=== PATIENT | female | born 1960 | race Caucasian/White ===

== ENCOUNTER 2019-05-28 10:09 | Observation (INO) | payer BC, SELFPAY ==
[2019-05-28 10:11] VITALS: BP 160/87; PULSE 77; RESP 16; TEMP 36.7; O2SAT 98; BMI 41.5
--- NOTE | 2019-05-28 10:30 | RAD_ITS ---
STUDY: X-RAY - RIGHT ANKLE REASON FOR EXAM: Female, 59 years old. Pain and swelling TECHNIQUE: 3 view(s) of the ankle. COMPARISON: None. FINDINGS: There are subacute trimalleolar fractures noted in the right ankle. There is an acute transverse fracture of the medial malleolus. There is a minimally displaced, spiral fracture of the distal fibula, and a nondisplaced posterior tibial fracture. There is associated soft tissue swelling. There is abnormal widening of the tibiotalar joint space suggesting ligamentous injury. The distal fracture fragment of the tibia maintains anatomic alignment with the talus. The distal fracture fragment of the fibula also maintains anatomic alignment with the talus. Prominent calcaneal heel spurs noted. RAD/Ankle min 3 Views IMPRESSION: Subacute trimalleolar fractures in the right ankle with diffuse soft tissue swelling. Orthopedic surgery consultation recommended Prominent calcaneal spurs Electronically Signed: Cedric Martínez MD at 11:54 EDT , Service support ,
--- NOTE | 2019-05-28 10:41 | EKG12_ITS ---
Test Reason : Blood Pressure : / mmHG Vent. Rate : 065 BPM Atrial Rate : 065 BPM P-R Int : 158 ms QRS Dur : 084 ms QT Int : 396 ms P-R-T Axes : 003 020 039 degrees QTc Int : 411 ms Normal sinus rhythm Normal ECG Confirmed by MATEUS VILLAGOMEZ, GALEN ([id number]), editor map RIELLY GU ([id number]) on 06/01/2019 2:03:55 PM Referred By: Abraham Roberts Confirmed By:ASHA IGNACIO MD
--- NOTE | 2019-05-28 10:50 | ED.DCSUM_ITS ---
History of Present Illness Chief Complaint: Lower Extremity Injury Informant: Patient Occurred: Days - 3 Context: Sudden Onset - gradually worsening Quality of Pain: Aching Location: right ankle/leg Current Severity: Severe Maximum Severity: Severe Worsened by: trying to get around, palpation Relieved by: not by percocet Associated Symptoms: Loss of Funtion. Negative for: Parasthesia, Weakness Narrative: Patient was at [employer] couple days ago, she slipped on a wet rock and broke her ankle, she was seen at the local ER where they diagnosed and put her in a splint. They recommended that she be nonweightbearing and that she allow them to transfer her to [facility]. She declined at the time and preferred to go home which is here, to follow-up with orthopedics where she lives. They told her to be nonweightbearing but did not send her home with crutches or a prescription for any hardware, she states her has been trying to carry her but he cannot because he has bad knees, she has had significant difficulty in getting around, transferring to the restroom, etc. She has an appointment for Saturday which is 4 days away, and she has not seen orthopedics yet. She is in extreme pain despite the Percocet she was prescribed. She denies any numbness in her toes. She has done her best not to weight-bear with her right lower extremity. She denies any systemic symptoms or fevers. Past Medical History - Allergies and Home Meds Allergies/Adverse Reactions: Allergies No Known Allergies Allergy (Verified 05/28/19 10:10) Past Medical History: None Lives: Spouse/ Significant Other Smoking Status: Never smoker - Family History Paternal Family History: Reports: Heart Disease Review of Systems General: Denies: Chills, Fever, Sweats Eyes: Denies: Visual changes - bilaterally, Diplopia ENT: Denies: Rhinorrhea, Sore throat Cardiovascular: Denies: Chest pain, Palpitations Respiratory: Denies: Dyspnea, Cough, Dyspnea on exertion Gastrointestinal: Denies: Abdominal pain, Nausea, Vomiting, Diarrhea, Melena, Hematochezia Genitourinary: Denies: Dysuria, Hematuria, Frequency Musculoskeletal: Reports: Swelling - Right ankle, Extremity Pain. Denies: Neck pain, Back pain Skin: Denies: Rash, Wounds Neurological: Denies: Headache, Weakness, Parasthesia, Numbness Physical Exam Vital Signs/Narrative: Vital Signs Temp Pulse Resp BP Pulse Ox 05/28/19 10:11 98.1 F 77 16 160/87 H 98 Inital Vital Signs reviewed: Yes - Extremity Exam Right Ankle: Limited ROM - Due to pain. Diffusely tender throughout right ankle and lower half of her right lower leg. All compartments are soft. Brisk cap refill distally. General: Well nourished, Well developed, Obese Head: Normocephalic, Atraumatic Eyes: Perrl, EOMI ENT: No Trauma, Moist Mucous Membranes Neck: Nontender, Full ROM Cardiovascular: Regular rate, Regular rhythm, No murmurs Respiratory: No distress, CTA bilaterally, Chest nontender Abdomen: Soft, Nontender, Nondistended, Normal bowel sounds Back: Nontender Skin: Normal color, No rash, Trauma - Scabbed abrasion anterior right ankle, no lacerations. Old-appearing bruising/ecchymosis distal to the ankle and the foot. Neurological: Alert, Oriented x3, Cranial nerves II-XII grossly intact, Normal Strength, Normal Sensation Psychological: Normal affect, Normal Mood Diagnostic/Tx/Re-eval Impressions Ankle X-Ray 05/28/19 10:30 IMPRESSION: Subacute trimalleolar fractures in the right ankle with diffuse soft tissue swelling. Orthopedic surgery consultation recommended Prominent calcaneal spurs Electronically Signed: Cedric Martínez MD at 11:54 EDT , Service support , 05/28/19 10:30 Ankle min 3 Views [RAD] Stat Laboratory Results 05/28/19 05/28/19 11:18 11:18 WBC 11.9 H RBC 4.49 Hgb 13.0 Hct 39.8 MCV 88.6 MCH 29.0 MCHC 32.7 RDW Std Deviation 44.4 H RDW Coeff of Mana 13.8 Plt Count 229 MPV 10.4 Immature Gran % (Auto) 0.600 Neut % (Auto) 68.5 Lymph % (Auto) 23.0 [place] % (Auto) 6.6 Eos % (Auto) 0.9 Baso % (Auto) 0.4 Absolute Neuts (auto) 8.1 H Absolute Lymphs (auto) 2.73 Absolute Nucleated RBC 0.00 Nucleated RBC % 0 Sodium 138 Potassium 4.8 Chloride 107 Carbon Dioxide 28.0 Anion Gap 3 L BUN 15 Creatinine 0.92 Estim Creat Clear Calc 58.51 Est GFR (MDRD) Af Amer 80 Est GFR (MDRD) Non-Af 66 BUN/Creatinine Ratio 16.3 Glucose 164 H Calcium 9.5 - EKG Initial EKG Interpretation: Sinus Rhythm, No Acute Injury Pattern - normal EKG Prior: No Prior - (preop EKG) - Medical Decision Making I reviewed the x-rays patient had at the outpatient facility, and also obtain new one since she has been trying to get around, sometimes unsuccessfully, without bearing weight on it. The outpatient films show a displaced bimalleolar fracture and it appears to be splinted that way. X-rays confirm that is still the case, there is quite a bit of lateral talar shift. I discussed with orthopedics Dr. Rivers, he agrees she needs surgical repair, but states she may be too swollen to do it immediately, and recommends outpatient evaluation for surgical fixation for the fracture. However, with regards to the patient herself, she is not able to get around, and feels that she will not be able to even with a walker and her is unable to help her and they are requesting admission for pain control. They do understand that surgery is not guaranteed while here in the hospital, but Dr. Rivers said that he would see the patient and evaluate her for that and evaluate the degree of swelling. With regards to her swelling, I do not think she clinically has a compartment syndrome at this time. Morphine did help her pain. Procedures - Lower Extremity Splints Lower Extremity Splint: Orthoglass - short leg posterior & sugartong splint, - - NVID after placement, tolerated well Splint Fabrication: Fabricated Location: Right ED Disposition - Plan for ED Patient: Disposition: Acute Care Hospital [facility] Diagnosis: Closed displaced bimalleolar fracture of right ankle, Intractable pain
[2019-05-28] MEDS: Morphine 4 MG/ML Syringe IV (11:17)
[2019-05-28 11:31] LABS: Absolute Lymphocyte Count 2.73 X10^3/uL (0.83-4.51); Absolute Neutrophil Count 8.1 X10^3/uL (2.0-7.7); Basophil# 0.05 X10^3/uL; Basophil% 0.4 % (0-1); Eosinophil# 0.11 X10^3/uL; Eosinophils% 0.9 % (0-5); Hematocrit 39.8 % (37-47); Lymphocyte # 2.73 X10^3/ul (4.0); Mean Corp Hgb Conc 32.7 g/dL (32-36); Mean Corpuscular Volume 88.6 fL (81-99); Mean Platelet Vol. 10.4 fl (6.2-12.0); Monocyte# 0.78 X10^3/uL; Monocyte% 6.6 % (0-10); NRBC Flagged by Analyzer 0 % (0-5); Neutrophil # 8.14 X10^3/uL (2.7-7.7); Neutrophil % 68.5 % (47-70); Platelet Count 229 K/mm3 (150-450); RBC Distribution Width CV 13.8 % (11.6-14.6); RBC Distribution Width SD 44.4 fl (35.1-43.9); Red Blood Count 4.49 M/mm3 (4.2-5.4); White Blood Count 11.9 K/mm3 (4.4-11.0)
[2019-05-28 11:51] LABS: Anion Gap 3 (5-15); BUN 15 mg/dL (7-18); BUN/Creat Ratio 16.3 RATIO (10-20); Calcium,Total 9.5 mg/dL (8.5-10.1); Chloride 107 mmol/L (98-107); Creatinine, Serum 0.92 mg/dL (0.55-1.02); EST Glomerular Filtration Rate 66 mL/min (>60); Est Glom Filt Rate - Afr Amer 80 mL/min (>60); Estimated Creatinine Clearance 58.51 ml/min; Glucose 164 mg/dL (74-106); Potassium 4.8 mmol/L (3.5-5.1); Sodium Level 138 mmol/L (136-145)
--- NOTE | 2019-05-28 13:27 | NURSING ---
Neil Roberts informing pt arrived to [id number].
[2019-05-28 13:28] VITALS: BMI 43.8
--- NOTE | 2019-05-28 13:33 | HP.PCM_ITS ---
Problem List (1) Closed displaced bimalleolar fracture of right ankle Status: Acute Qualifiers: Encounter type: subsequent encounter History of Present Illness Date of Admission: 05/28/19 Chief Complaint: right ankle pain The patient is a 59 year old F who on the was at [facility] and then landed on her right foot and her right foot laterally. Patient sustained pain. Patient went to an outside emergency room in [facility] was diagnosed with a fracture and recommend going to [place]. Patient declined preferring to come to [place], where she is from. Presented to the emergency room and had a x- ray showed a fracture of the ankle. Patient is unable to care for herself and her is unable to help her. Dr. Sagastume, orthopedics, was contacted and stated that he will evaluate patient in the emergency room but no imminent plans for surgery the swelling is improved. [] Past Medical History Allergies No Known Allergies Allergy (Verified 05/28/19 10:10) Home Medications: Ambulatory Orders Medication Instructions Recorded Oxycodone HCl/Acetaminophen 1 ea PO PRN PRN 05/28/19 [Oxycodon-Acetaminophen 7.5-325] Psychiatric History: No pertinent psych hx Lives: Spouse/ Significant Other Smoking Status: Former smoker - *Family History Paternal History Items: Heart Disease Review of Systems Constitutional: Denies: Anorexia, Night Sweats Eyes: Denies: Blurred vision, Double vision HEENT: Denies: Head Aches, Sinus Congestion, Sinus Drainage Cardiovascular: Denies: Chest Pain, Palpitations Respiratory: Denies: Cough, Shortness of breath at rest, Sputum production Gastrointestinal: Denies: Abdominal Pain, Nausea, Vomiting Genitourinary: Denies: Dysuria Musculoskeletal: Denies: Joint Pain, Joint Tenderness Skin: Denies: Dryness, Jaundice Neurological: Denies: Numbness, Tingling, Focal weakness Psychiatric: Denies: Anxiety, Depression Hematologic/ Lymphatic: Denies: Easy Bruising, Easy Bleeding, Hx of blood clot Comment: A 10 point review of systems were negative except as mentioned in the history of present illness and the other review of systems. VTE Information - Inpt Only VTE Present on Admission: No VTE Mechan Device Prophylaxis: None VTE Pharm Prophylaxis ordered?: Yes Patient Problems: Active and Suspected Problems Closed displaced bimalleolar fracture of right ankle (Acute) Intractable pain (Acute) - Physical Exam General: Alert, Cooperative, No apparent distress HEENT: Atraumatic, Normocephalic Oral: Moist Mucosa, No Gingival or Mucosal Lesions/ Ulcerations Neck: No Nodes, Thyroid Normal Size and Texture Lungs: Clear to auscultation, Normal air movement, No rhonchi, No wheeze, No rales, Diminished Cardiovascular: Regular rate, Regular Rhythm, Normal S1, Normal S2, No murmurs Abdomen: Bowel Sounds Present, Soft, Non Tender, Non-Distended, No Hepato- splenomegaly Extremities: No edema, No Calf Tenderness Skin: No rashes, No breakdown Musculoskeletal: No Tenderness to Palpation of Joints or Extremities, No Muscle Wasting, - - right ankle swelling. Neurological: Sensory exam intact to light touch and pain, Coordination normal Psych/Mental Status: Normal Affect, Appropriate Vital Signs Temp Pulse Resp BP Pulse Ox 36.7 C 77 16 160/87 H 98 05/28/19 10:11 05/28/19 10:11 05/28/19 10:11 05/28/19 10:11 05/28/19 10:11 Oxygen Delivery Method Room Air Weight: 119.522 kg Body Mass Index (BMI) 43.8 Laboratory Tests Past 24 Hrs 05/28/19 05/28/19 11:18 11:18 WBC 11.9 H RBC 4.49 Hgb 13.0 Hct 39.8 MCV 88.6 MCH 29.0 MCHC 32.7 RDW Std Deviation 44.4 H RDW Coeff of Mana 13.8 Plt Count 229 MPV 10.4 Immature Gran % (Auto) 0.600 Neut % (Auto) 68.5 Lymph % (Auto) 23.0 [place] % (Auto) 6.6 Eos % (Auto) 0.9 Baso % (Auto) 0.4 Absolute Neuts (auto) 8.1 H Absolute Lymphs (auto) 2.73 Absolute Nucleated RBC 0.00 Nucleated RBC % 0 Sodium 138 Potassium 4.8 Chloride 107 Carbon Dioxide 28.0 Anion Gap 3 L BUN 15 Creatinine 0.92 Estim Creat Clear Calc 58.51 Est GFR (MDRD) Af Amer 80 Est GFR (MDRD) Non-Af 66 BUN/Creatinine Ratio 16.3 Glucose 164 H Calcium 9.5 Assessment/Plan All Active Problems Closed displaced bimalleolar fracture of right ankle (Acute) Intractable pain (Acute) 1. right trimalleolar fracture * still with swelling * NWB * consult ortho. patient aware she may not have surgery during this admission. * pain control 2. debilility * PT OT * may need SNF 3. VTE prophylaxis: LMWH while in the hospital Code Visit OBSV E&M: 38612 Initial observation care L3
[2019-05-28 13:40] VITALS: BMI 43.8
[2019-05-28 13:47] VITALS: BP 136/69; PULSE 68; RESP 18; TEMP 36.2; O2SAT 95
[2019-05-28] MEDS: oxyCODONE 5 MG Tablet PO ×3 (14:48→23:51)
--- NOTE | 2019-05-28 15:55 | CASEMGMT ---
Addendum entered by Mian Villanueva 05/28/19 16:15: Pt given AD info packet and Social Service Rac Card. She was made aware of SW unable to meet with her during this admission, she can talk w/SW @ SNF or make appt with SW as an Out-pt @ [facility]. Pt voices understanding. Original Note: RN CM TRIM SAWYER CM to room to meet with patient for initial transition planning/care coordination assessment. RN CM introduced self and role at [facility]. Pt voices understanding and consents to assessment at this time. Pt sitting up in recliner chair. visiting in room. Pt is A/O at this time and answers all questions appropriately. Care providers and pharmacy verified at this time. PCP: Selena Castle [facility]OR GRADER [facility]ADE @ [facility] Specialists: None Preferred [facility]acy: [facility] Insurance: [employer] [place] Prescription Benefit: Yes Living Will/HPOA: Does not have either. Would like to talk to MARGARITO for further information and completing paperwork. MARGARITO Godfrey, notified. LNOK: Living Arrangements: Lives with in a one-story home w/2 steps to enter. Transportation: Pt drove prior to injury. drives. DME: States has the following DME: Crutches (although they state they slip easily and they may need a new set). They just recently started renting a knee scooter. Pt states may need a walker. HHC/SNF: Pt and state pt would benefit from going to a SNF @ D/C d/t pt is NWB and needs assist with all transfers. has been trying to assist pt but it has been getting too much for him to do. CM to follow for any further discharge planning/needs. Pt voices no further concerns/needs at this time. Advised pt to ask for CM if any further questions/concerns/needs arise. Voices understanding. PLAN: SNF. 1st preference is [facility]. Given list of other SNF's in network with [facility]. Epifanio PIMENTEL, notified. Shani MURGUIAN SHILPI LESTER
[2019-05-28] MEDS: Acetaminophen 325 MG Tablet 650 MG PO ×2 (16:31→23:51)
--- NOTE | 2019-05-28 16:34 | CASEMGMT ---
Social Work Note MARGARITO received referral by RN TREVON Villanueva for SNF placement. Pt and pt's would like [facility]. MARGARITO placed a call to Gely at [facility]. Per Gely they are in network with pt's insurance and will review referral. MARGARITO informed Gely that PT/OT already saw pt and this worker is waiting for PT/OT to evaluate pt and once PT/OT is available this worker will fax referral. MARGARITO asked Gely that if she is able to accept pt then to submit for pre-cert. Gely states understanding. MARGARITO updated Gely that it is unclear if pt will need surgery or not. MARGARITO faxed referral to [facility]. Plan: [facility] pending acceptance and pre-cert Cait Lazo PIPE COVERER HELPER, CLINICAL SUPERVISOR
--- NOTE | 2019-05-28 16:56 | PCM.CONS.GEN ---
Reason for Consult Date of Consultation: 05/28/19 Reason for Consultation: Right ankle pain requested by dr juarez History of Present Illness: The patient is a 59 year old F with history of obesity presented to the emergency department today with right ankle pain. She was in [facility] hiking 2 days ago when she tripped and twisted her ankle. She was noted to have a noted deformity at that time. She was evaluated in the emergency department that area splinted and sent home for orthopedic follow-up. Patient notes she did not receive crutches or prescription for crutches nor a walker. She is been trying to get around her house with nonweightbearing and having significant pain and difficulty with functioning. She came to the emergency department today demanding to be admitted and was admitted to the medicine service. She has associated swelling and ecchymosis. She has no numbness and tingling. Pain is worse with motion better with immobilization. Is a dull achy pain rated a 10 out of 10 with motion currently 7 out of 10. Past Medical History Allergies No Known Allergies Allergy (Verified 05/28/19 10:10) Home Medications: Ambulatory Orders Medication Instructions Recorded Oxycodone HCl/Acetaminophen 1 ea PO PRN PRN 05/28/19 [Oxycodon-Acetaminophen 7.5-325] Ranitidine [Zantac] 150 mg PO DAILY 05/28/19 Surgical History: - - No anesthesia complications Psychiatric History: No pertinent psych hx PRODUCT MARKETING DIRECTOR History: No pertinent PRODUCT MARKETING DIRECTOR history Lives: Spouse/ Significant Other Smoking Status: Former smoker Tobacco Use: Non-smoker Alcohol: Rare Drugs: None - *Family History Paternal History Items: Heart Disease Review of Systems Constitutional: Denies: Chills, Fever, Weight Change HEENT: Denies: Head Aches, Sinus Congestion, Sinus Drainage Cardiovascular: Denies: Chest Pain, Palpitations Respiratory: Denies: Cough, Shortness of breath at rest, Sputum production Gastrointestinal: Denies: Abdominal Pain, Nausea, Vomiting Genitourinary: Denies: Dysuria Musculoskeletal: Reports: Joint Pain, Joint Tenderness, Leg Pain Skin: Denies: Rash, Wounds Neurological: Denies: Numbness, Tingling, Focal weakness Psychiatric: Denies: Anxiety, Depression, Homicidal Ideations, Suicidal Ideations Hematologic/ Lymphatic: Denies: Easy Bruising, Easy Bleeding Patient Problems: Active and Suspected Problems Closed displaced bimalleolar fracture of right ankle (Acute) Intractable pain (Acute) Objective: Right ankle radiographs are consistent with a bimalleolar ankle fracture with displaced transverse medial malleolus and Anna B distal fibula fracture. Mortise appears intact. Significant lateral subluxation of the talus. - Physical Exam General: Alert, Oriented x3, Cooperative HEENT: Atraumatic Neck: No JVD Lungs: - - Nonlabored breathing Cardiovascular: - - Regular pulse rate Abdomen: Non-Distended Extremities: - - Right lower extremity: Patient has swelling but does have wrinkles in the skin. Ecchymosis medially and laterally. Able to dorsiflex plantar flex and wiggle all her toes. Palpable pulses. Sensations intact light touch saphenous, sural, sufficient peroneal, deep peroneal tibial nerve distributions. There is a small abrasion over the anterior medial leg about 5 inches proximal to the medial malleolus. Skin: - - Abrasion over the medial leg above medial malleolus. Neurological: Cranial nerves II-XII grossly intact Vital Signs Temp Pulse Resp BP Pulse Ox 97.1 F L 68 18 136/69 H 95 05/28/19 13:47 05/28/19 13:47 05/28/19 13:47 05/28/19 13:47 05/28/19 13:47 Oxygen Delivery Method Room Air Weight: 263 lb 8 oz Body Mass Index (BMI) 43.8 Laboratory Tests Past 24 Hrs 05/28/19 05/28/19 11:18 11:18 WBC 11.9 H RBC 4.49 Hgb 13.0 Hct 39.8 MCV 88.6 MCH 29.0 MCHC 32.7 RDW Std Deviation 44.4 H RDW Coeff of Mana 13.8 Plt Count 229 MPV 10.4 Immature Gran % (Auto) 0.600 Neut % (Auto) 68.5 Lymph % (Auto) 23.0 [place] % (Auto) 6.6 Eos % (Auto) 0.9 Baso % (Auto) 0.4 Absolute Neuts (auto) 8.1 H Absolute Lymphs (auto) 2.73 Absolute Nucleated RBC 0.00 Nucleated RBC % 0 Sodium 138 Potassium 4.8 Chloride 107 Carbon Dioxide 28.0 Anion Gap 3 L BUN 15 Creatinine 0.92 Estim Creat Clear Calc 58.51 Est GFR (MDRD) Af Amer 80 Est GFR (MDRD) Non-Af 66 BUN/Creatinine Ratio 16.3 Glucose 164 H Calcium 9.5 Assessment/Plan All Active Problems Closed displaced bimalleolar fracture of right ankle (Acute) Intractable pain (Acute) Right bimalleolar ankle fracture. Patient has unstable right bimalleolar ankle fracture. She is been admitted to the hospital due to inability to care for self at home. At this point she has moderate swelling. She is been instructed to ice and elevate overnight. If the swelling is able to be adequately reduced he can likely proceed with open reduction internal fixation tomorrow afternoon. His swelling significantly progresses we may need to delay surgery until swelling can further subside. We have she has been instructed on aggressive ice and elevation overnight as well as her nurse. We did discuss operative versus nonoperative intervention but at this time based on the fracture pattern and subluxation of the talus under the tibia open reduction internal fixation was recommended to the patient. Risks and benefits of the procedure were discussed the patient including balance to blood loss, DVTs, PEs, nervous damage, infection, the risk of anesthesia including loss of life. Patient demonstrates an understanding he would like to proceed with open reduction and internal fixation. At this time the timing of the procedure is unknown likely evening versus Saturday morning if done on this admission. Again swelling will determine appropriate treatment plan. We will leave the patient n.p.o. overnight. Antibiotics will be ordered on-call to the operating room. [facility] Office:
[2019-05-28 20:28] VITALS: BP 132/72; PULSE 64; RESP 18; TEMP 36.6; O2SAT 95
[2019-05-28] MEDS: oxyCODONE 5 MG Tablet 10 MG PO (20:48)
[2019-05-29 03:00] VITALS: BP 135/79; PULSE 67; RESP 16; TEMP 36.6; O2SAT 99
[2019-05-29] MEDS: oxyCODONE 5 MG Tablet 10 MG PO ×3 (06:54→22:20)
--- NOTE | 2019-05-29 08:31 | CASEMGMT ---
Social Work Note SW received message from Gely at [facility] stating they are able to accept pt and submitted for pre-cert. Plan: [facility] pending pre-cert Cait Lazo MSW, MODEL PHOTOGRAPHERS'
[2019-05-29 08:53] LABS: International Normalized Ratio 1.1; Prothrombin Time (Protime)PT. 14.2 SECONDS (11.7-14.9)
[2019-05-29 08:54] LABS: Partial Thromboplast Time 28.4 Seconds (24.1-36.2)
[2019-05-29 09:00] VITALS: BP 132/60; PULSE 86; RESP 18; TEMP 36.7; O2SAT 96
[2019-05-29 09:13] VITALS: PULSE 80
--- NOTE | 2019-05-29 09:41 | PCM.PROGNOTE ---
Patient Problems: Active and Suspected Problems Closed trimalleolar fracture of ankle (Acute) Subjective: Chief complaint: Follow-up after admission for subacute traumatic trimalleolar fracture of the right ankle. Patient seen and examined. No acute events overnight. Right ankle pain still there, swelling slightly improved. Denies any other symptoms. Her vital signs are stable. - Physical Exam General: Alert, Oriented x3, Cooperative, No apparent distress HEENT: Atraumatic, PERRLA, EOMI, Normocephalic Oral: Moist Mucosa, No Gingival or Mucosal Lesions/ Ulcerations Neck: Supple, No JVD, Negative Carotid Bruits, Trachea Midline, Thyroid Normal Size and Texture Lungs: Clear to auscultation, Normal air movement, No rhonchi, No wheeze, No rales Cardiovascular: Regular rate, Regular Rhythm, Normal S1, Normal S2, No murmurs Abdomen: Bowel Sounds Present, Soft, Non Tender, Non-Distended, No Hepato-splenomegaly, Obese Extremities: No clubbing, No cyanosis, No edema Skin: No rashes, No breakdown Lymphatic: No Cervical, Supraclavicular, or Inguinal Adenopathy Neurological: Cranial nerves II-XII grossly intact, Motor Exam 5/5 strength throughout Psych/Mental Status: Normal Affect, Appropriate, Alert and oriented to time, place, person, mood and affect Vital Signs Temp Pulse Resp BP Pulse Ox 98.1 F 80 18 132/60 H 96 05/29/19 09:00 05/29/19 09:13 05/29/19 09:00 05/29/19 09:00 05/29/19 09:00 Oxygen Delivery Method Room Air Weight: 263 lb 8 oz Body Mass Index (BMI) 43.8 Intake and Output for Last 24 Hours 05/27/19 05/28/19 05/29/19 23:59 23:59 23:59 Intake Total 1100 / 1100 0 / 0 Output Total 0 / 0 Balance 1100 / 1100 0 / 0 Laboratory Tests Past 24 Hrs 05/28/19 05/28/19 05/29/19 11:18 11:18 08:24 WBC 11.9 H RBC 4.49 Hgb 13.0 Hct 39.8 MCV 88.6 MCH 29.0 MCHC 32.7 RDW Std Deviation 44.4 H RDW Coeff of Mana 13.8 Plt Count 229 MPV 10.4 Immature Gran % (Auto) 0.600 Neut % (Auto) 68.5 Lymph % (Auto) 23.0 Dukes % (Auto) 6.6 Eos % (Auto) 0.9 Baso % (Auto) 0.4 Absolute Neuts (auto) 8.1 H Absolute Lymphs (auto) 2.73 Absolute Nucleated RBC 0.00 Nucleated RBC % 0 PT 14.2 INR 1.1 APTT 28.4 Sodium 138 Potassium 4.8 Chloride 107 Carbon Dioxide 28.0 Anion Gap 3 L BUN 15 Creatinine 0.92 Estim Creat Clear Calc 58.51 Est GFR (MDRD) Af Amer 80 Est GFR (MDRD) Non-Af 66 BUN/Creatinine Ratio 16.3 Glucose 164 H Hemoglobin A1c Calcium 9.5 05/29/19 08:24 WBC RBC Hgb Hct MCV MCH MCHC RDW Std Deviation RDW Coeff of Mana Plt Count MPV Immature Gran % (Auto) Neut % (Auto) Lymph % (Auto) Dukes % (Auto) Eos % (Auto) Baso % (Auto) Absolute Neuts (auto) Absolute Lymphs (auto) Absolute Nucleated RBC Nucleated RBC % PT INR APTT Sodium Potassium Chloride Carbon Dioxide Anion Gap BUN Creatinine Estim Creat Clear Calc Est GFR (MDRD) Af Amer Est GFR (MDRD) Non-Af BUN/Creatinine Ratio Glucose Hemoglobin A1c Pending Calcium Clinical Impression(s) from Imaging Studies Ankle X-Ray 05/28/19 10:30 IMPRESSION: Subacute trimalleolar fractures in the right ankle with diffuse soft tissue swelling. Orthopedic surgery consultation recommended Prominent calcaneal spurs Electronically Signed: Cedric Martínez MD at 11:54 EDT , Service support , Medical Necessity - Tobacco Use Smoking Status: Former smoker Assessment/Plan All Active Problems Closed trimalleolar fracture of ankle (Acute) This is a 59 years old female patient presented to the emergency room because of increasing right ankle pain after she was diagnosed with right ankle fracture couple of days ago due to mechanical fall, x-ray performed and revealed subacute trimalleolar fracture of the right ankle and she was admitted for treatment. #1 subacute traumatic trimalar fracture of the right ankle: X-ray reviewed. It is traumatic due to mechanical fall. She is on IV morphine as well as OxyIR as needed for pain. Preoperative routine blood work was unremarkable. Vital signs are stable. She is on IV cefazolin for perioperative prophylaxis. Orthopedic surgery consulted, plan for surgery today. #2 GERD: At home, she has been on Zantac. Plan to start Pepcid. #3 DVT prophylaxis: Subcu Lovenox, held for surgery today. This note was generated with [employer] dictation software. It may contain incorrect words, spelling, and punctuation that were not noted in checking the note before signing. Code Visit Inpatient E&M: 49033 Subs Hosp L2
[2019-05-29] MEDS: Famotidine 20 MG Tablet PO ×2 (11:15→20:43)
--- NOTE | 2019-05-29 13:46 | CASEMGMT ---
Social Work Note MARGARITO faxed updated clinicals to [facility]. Pt is getting surgery today. SW completed PAS/RR in HENS and placed on pt's chart. MARGARITO placed green sheet and transportation form on pt's chart in the event pre-cert is obtained and pt is able to discharge over the weekend. Plan: [facility] pending pre-cert Cait Lazo MSW, MEDIA CENTER ASSISTANT
[2019-05-29 14:00] VITALS: BP 149/71; PULSE 66; RESP 18; TEMP 36.9; O2SAT 96
--- NOTE | 2019-05-29 15:01 | PCA ---
pt off floor
--- NOTE | 2019-05-29 15:20 | NURSING ---
REPORT CALLED TO [facility]
--- NOTE | 2019-05-29 16:49 | PCM.PN.BLA ---
Progress Note 59-year-old female patient was seen and examined today. Medicine service has cleared her she did have a hemoglobin A1c of 7.0 with new diagnosis of diabetes mellitus. We discussed how this can affect her outcomes wound healing complications and infection rates with ankle fractures. We discussed risks and benefits of the procedure today which include blood loss, DVTs, PEs, neurovascular damage, infection, general risk of anesthesia including loss of life. Nonunion, malunion screw cut out. Patient demonstrated understanding it would like to proceed. On physical examination she wiggles all her toes she has brisk cap refill and has sensation intact light touch superficial peroneal and deep peroneal distributions. Her splint is in place. Swelling is decreased. There were some significant delays in the operating room pushing the case to a very late hour. At this time we discussed fixation tomorrow morning at a more scheduled time. Patient is agreeable to this treatment plan. We will plan on returning to the operating room tomorrow morning for definitive fixation. Patient can have diet until midnight tonight she will be n.p.o. after midnight. [facility] Office:
[2019-05-29] MEDS: Acetaminophen 325 MG Tablet 650 MG PO (17:45)
[2019-05-29 20:35] VITALS: BP 106/75; PULSE 72; RESP 18; TEMP 36.6; O2SAT 98
[2019-05-30] VITALS (10 sets, daily range): BP systolic 118–138; BP diastolic 52–95; PULSE 66–87; RESP 16–20; TEMP 36.1–36.9; O2SAT 96–100; BMI 43.7
[2019-05-30] MEDS: oxyCODONE 5 MG Tablet 10 MG PO ×3 (05:32→17:12)
[2019-05-30] MEDS: Acetaminophen 325 MG Tablet 650 MG PO (05:32)
[2019-05-30] MEDS: 0.9% NaCl Peripheral Flush Adult/Peds IV (07:31)
--- NOTE | 2019-05-30 07:35 | NURSING ---
Dr Richardson called and would like pt down in surgery at this time. Handoff given to Angel from [facility] and pt left unit at this time with TIERRA Shelley. Antibiotic sent down with pt.
--- NOTE | 2019-05-30 08:00 | RAD_ITS ---
STUDY: X-RAY - RIGHT ANKLE REASON FOR EXAM: Female, 59 years old. Upper guidance for ankle fracture fixation TECHNIQUE: 6 fluoroscopic view(s) of the ankle. COMPARISON: 05/28/2019 FINDINGS: 6 fluoroscopic x-rays demonstrate placement of a distal fibular fixation plate and screws spanning distal fibular fracture with gross radiographic alignment. Single fixation screw of the medial malleolus also placed with gross alignment of medial malleolus fracture. Irregularity along the posterior distal tibia is stable. There is gross radiographic alignment of the tibiotalar articulation. RAD/Ankle min 3 Views IMPRESSION: Fluoroscopic guidance for bimalleolar fracture fixation. Electronically Signed: Nemesio Philip MD at 12:42 EDT , Service support ,
--- NOTE | 2019-05-30 09:45 | PCM.OPRPT ---
Report of Operation Date of Procedure: 05/30/19 Pre-Operative Diagnosis: Right bimalleolar ankle fracture Post-Operative Diagnosis: Right bimalleolar ankle fracture Surgery/Procedure Performed:: Open reduction internal fixation right bimalleolar ankle fracture. Stress examination under fluoroscopy right syndesmosis Description of Surgical Findings:: Stable reduction. Well aligned ankle. Well reduced ankle joint. color maker formulator: Chevy Baum Type of Anesthesia:: Spinal Anesthesiologist: Zeke Richardson Special Medications: 2 g Ancef Estimated Blood Loss (mL): 15 Fluids Replaced: 1600 mL crystalloid Description of Procedure: 59-year-old female sustained a ankle fracture after falling down a hill. She presented to the emergency department and was admitted to the hospital due to inability to ambulate and maintain self-care. Patient was placed on ice and elevation swelling decreased. We elected to proceed with surgery due to subluxation of the joint and instability of the fracture. Risks and benefits of the procedure were discussed the patient including but not limited to blood loss, DVTs, PEs, nervous damage, infection, general risk of anesthesia including loss of life. In the hospital patient did have a hemoglobin A1c of 7.0, she had previously denied diagnosis of diabetes we discussed how this can affect her outcomes. On the date of the procedure patient's right lower extremity was marked in the preoperative area. Patient was brought back to the operating room with her transfer the table in the supine position. Anesthesia assumed control C-spine airway and remained controlled throughout the remainder the procedure. Anesthesia administered anesthetic. A bump was placed underneath the right hip. Tourniquet was placed in the right upper thigh. Right lower extremity was placed upon towels. Right lotion was prepped in a sterile fashion with surgeon scrubbed. Upon entering the room the right lower extremity was draped in a standard orthopedic fashion. Incisions were marked out laterally and medially. Timeout was called and when agreed upon the side, the site, procedure performed, patient identity and antibiotics given. Esmarch bandage was used to examining the extremity tourniquet was placed at the 250 mmHg. Spinal was tested incision was taken down laterally through the subcu skin and subcutaneous tissue. Simultaneous tissue was then dissected bluntly using scissors until we could identify the fracture. We then dissected up the bone proximally and distally to identify the fracture. Fracture site was identified curetted out any fracture hematoma and irrigated out the fracture. Once the fracture was adequately cleaned up we attempted reduction. Reduction was difficult based on bone quality we were having a difficult time getting the distal fragment medial enough. At this time we elected to go to the medial side. Medial incision was made blunt dissection taken subcutaneous tissues and the fracture was identified. We could then reduce the fragment medially. After we reduced the fragment we pinned it in place and verified the reduction under live fluoroscopy. Once this was completed we turned our attention back to the lateral malleolus. Clamps were then used to reduce the fragment. Once this was adequately clamped we chose the 4-hole plate and placed a screw distally and a screw proximally. Once we are happy with our provisional fixation and adequate reduction locking screws were placed distally in a sequential fashion. We then remove the prominent cortical screw. We verify the reduction was maintained. We then placed 1 more 3 5 screw proximally in a compression fashion at the proximal portion of the distal slotted hole. 2 additional locking screws were placed proximally. Wound scope seated on normal saline and our attention was turned to the medial malleolar fragment. Based on the small nature of the fragment we attempted to get a better trajectory for guidepin. This resulted in loss of the reduction. Due to the small nature of the fragment we elected to use a #2 FiberWire in a tension band fashion to help reduce the fragment. Once the fragment was adequately reduced with a tension band we did place 1, 4.0mm cannulated screw using live fluoroscopy to guide the trajectory. Once this was done a final mortise x-ray was taken. With a mortise x-ray with an externally rotated the foot and stress the syndesmosis. Syndesmosis remained stable. At this time we took an AP and lateral the ankle joint was well reduced. Fracture fragments were reduced. Everything was well fixed. At this time the wound was ema irrigated out normal saline. We attempted to close the lateral fascia however due to the injury there was minimal lateral fashion to repair. We then closed the skin with 2-0 Vicryl and 3-0 nylon. Medially the skin was closed with 2-0 Vicryl and 3-0 nylon. Xeroform dressing was placed. Compression dressing was placed. Tourniquet was let down. Well-padded splint was placed. Patient was awakened by anesthesia and transferred to the PACU for recovery. Postop plan: Patient is nonweightbearing for total of 6 weeks. She will return to the office in 2 weeks to have the sutures removed she will come out of the splint and begin range of motion exercises. At 4 weeks postop she will start physical therapy for range of motion. At 6 weeks postop if there is adequate healing we will begin weightbearing as appropriate. Aspirin for DVT prophylaxis for 4 weeks. Grafts/Implants Used: Synthes 4-0 cannulated screw, 4-hole anatomic locking plate - Complications No intraoperative complications - Admit VTE Documentation VTE Present on Admission: No VTE Mechan Device Prophylaxis: SCD's VTE Pharm Prophylaxis ordered?: Yes
[2019-05-30] MEDS: Lactated Ringers 1,000 ML 125 ML IV (10:04)
[2019-05-30] MEDS: Enoxaparin 40 MG/0.4 ML Syringe SC (11:19)
[2019-05-30] MEDS: Famotidine 20 MG Tablet PO ×2 (11:19→21:45)
--- NOTE | 2019-05-30 11:28 | PN_ITS ---
Patient Problems: Active and Suspected Problems Closed trimalleolar fracture of ankle (Acute) Subjective: Chief complaint: Follow-up after admission for subacute traumatic trimalleolar fracture of the right ankle, status post open reduction and internal fixation. Patient seen and examined. No acute events overnight. She just came back from the OR. Right ankle pain is manageable. Her vital signs are stable. - Physical Exam General: Alert, Oriented x3, Cooperative, No apparent distress HEENT: Atraumatic, PERRLA, EOMI, Normocephalic Oral: Moist Mucosa, No Gingival or Mucosal Lesions/ Ulcerations Neck: Supple, No JVD, Negative Carotid Bruits, Trachea Midline, Thyroid Normal Size and Texture Lungs: Clear to auscultation, Normal air movement, No rhonchi, No wheeze, No rales Cardiovascular: Regular rate, Regular Rhythm, Normal S1, Normal S2, No murmurs Abdomen: Bowel Sounds Present, Soft, Non Tender, Non-Distended, No Hepato-splen omegaly Extremities: No clubbing, No cyanosis, No edema Skin: No rashes, No breakdown Lymphatic: No Cervical, Supraclavicular, or Inguinal Adenopathy Neurological: Cranial nerves II-XII grossly intact, Motor Exam 5/5 strength throughout Psych/Mental Status: Normal Affect, Appropriate, Alert and oriented to time, place, person, mood and affect Vital Signs Temp Pulse Resp BP Pulse Ox 97 F L 67 16 136/52 H 97 05/30/19 10:27 05/30/19 10:27 05/30/19 10:27 05/30/19 10:27 05/30/19 10:27 Oxygen Delivery Method Room Air Weight: 262 lb 12.656 oz Body Mass Index (BMI) 43.7 Intake and Output for Last 24 Hours 05/28/19 05/29/19 05/30/19 23:59 23:59 23:59 Intake Total 1100 / 1100 30 / 230 1400 / 1400 Output Total 300 / 300 Balance 1100 / 1100 -270 / -70 1400 / 1400 Medical Necessity - Tobacco Use Smoking Status: Former smoker Tobacco Use: Non-smoker Assessment/Plan All Active Problems Closed trimalleolar fracture of ankle (Acute) This is a 59 years old female patient presented to the emergency room because of increasing right ankle pain after she was diagnosed with right ankle fracture couple of days ago due to mechanical fall, x-ray performed and revealed subacute trimalleolar fracture of the right ankle and she was admitted for treatment. #1 subacute traumatic trimalleolar fracture of the right ankle: Status post open reduction and internal fixation, postoperative day 1. She is on IV cefazolin for perioperative prophylaxis, on IV morphine and OxyIR PRN for pain. Vital signs are stable. Orthopedic surgery is managing. Plan to repeat CBC and BMP tomorrow morning. PT OT when appropriate and okay with orthopedic surgery. #2 hyperglycemia/newly diagnosed type 2 diabetes mellitus: On admission, blood glucose was 164. Patient is not diabetic and no family history of diabetes. Hemoglobin A1c was 7%. Plan: Accu-Cheks q. before meals at bedtime, sliding scale. #3 GERD: Continue Pepcid. #4 DVT prophylaxis: Subcu Lovenox. This note was generated with [employer] dictation software. It may contain incorrect words, spelling, and punctuation that were not noted in checking the note before signing. Code Visit Inpatient E&M: 30960 Subs Hosp L2
[2019-05-30 12:55] LABS: Bedside Glucose 159 mg/dL (70-110)
[2019-05-30] MEDS: Insulin Lispro 100 UNIT/ML INSULN.PEN SC ×2 (13:10→21:46)
--- NOTE | 2019-05-30 13:42 | CASEMGMT ---
Social Work Consult: Advanced Directives Informant: mgmt analyst Met with patient in room. This social work program coordinator introduced self as well as role. Broached topic of advanced care planning. Patient interested in information. This social work program coordinator providing patient with information on advanced care planning as well as engaged in conversation about advanced care planning. Patient provided with rack card on completion of advanced directives at [facility]. Patient also stating to plan to go over documents and would like social work program coordinator to check in with patient on Saturday, if patient is still here on possibly completing documents. All questions answered. PLAN: Patient pending precert for the [facility]. Katia INGRAM, ANJEL
[2019-05-30] MEDS: Cefazolin 1 GM/50 ML BAG IV ×2 (14:42→21:45)
[2019-05-30] MEDS: Glucerna Shake 120 ML LIQUID PO (17:14)
[2019-05-30] MEDS: Aspirin 81 MG TAB.CHEW PO (17:14)
[2019-05-30 17:31] LABS: Bedside Glucose 136 mg/dL (70-110)
[2019-05-30] MEDS: oxyCODONE 5 MG Tablet PO (21:45)
[2019-05-30 21:56] LABS: Bedside Glucose 156 mg/dL (70-110)
[2019-05-31] MEDS: Morphine 2 MG/ML Syringe IV (00:10)
[2019-05-31] MEDS: 0.9% NaCl Peripheral Flush Adult/Peds IV (00:12)
[2019-05-31] MEDS: oxyCODONE 5 MG Tablet 10 MG PO ×5 (01:02→23:15)
[2019-05-31 03:17] VITALS: BP 166/84; PULSE 75; RESP 18; TEMP 36.9; O2SAT 96
[2019-05-31] MEDS: oxyCODONE 5 MG Tablet PO (05:02)
[2019-05-31] MEDS: Ibuprofen 400 MG Tablet PO ×2 (05:02→21:55)
[2019-05-31 06:31] LABS: Absolute Lymphocyte Count 2.29 X10^3/uL (0.83-4.51); Absolute Neutrophil Count 8.9 X10^3/uL (2.0-7.7); Basophil# 0.03 X10^3/uL; Basophil% 0.2 % (0-1); Eosinophil# 0.07 X10^3/uL; Eosinophils% 0.6 % (0-5); Hematocrit 38.2 % (37-47); Hemoglobin 12.3 g/dL (12.0-15.0); Lymphocyte # 2.29 X10^3/ul (4.0); Lymphocyte % 18.4 % (19-41); Mean Corp Hgb Conc 32.2 g/dL (32-36); Mean Corpuscular Hgb 28.7 pg (27.0-32.0); Mean Platelet Vol. 10.2 fl (6.2-12.0); Monocyte# 1.05 X10^3/uL; Monocyte% 8.4 % (0-10); NRBC Flagged by Analyzer 0 % (0-5); Neutrophil # 8.92 X10^3/uL (2.7-7.7); Neutrophil % 71.8 % (47-70); Platelet Count 254 K/mm3 (150-450); RBC Distribution Width CV 13.5 % (11.6-14.6); Red Blood Count 4.29 M/mm3 (4.2-5.4); White Blood Count 12.4 K/mm3 (4.4-11.0)
[2019-05-31 06:54] LABS: Anion Gap 5 (5-15); BUN 9 mg/dL (7-18); BUN/Creat Ratio 11.6 RATIO (10-20); Calcium,Total 9.1 mg/dL (8.5-10.1); Chloride 104 mmol/L (98-107); Creatinine, Serum 0.78 mg/dL (0.55-1.02); EST Glomerular Filtration Rate 80 mL/min (>60); Est Glom Filt Rate - Afr Amer 97 mL/min (>60); Estimated Creatinine Clearance 66.23 ml/min; Glucose 165 mg/dL (74-106); Potassium 4.1 mmol/L (3.5-5.1); Sodium Level 137 mmol/L (136-145)
[2019-05-31] MEDS: Insulin Lispro 100 UNIT/ML INSULN.PEN SC ×4 (06:59→21:50)
[2019-05-31 07:11] LABS: Bedside Glucose 178 mg/dL (70-110)
[2019-05-31 07:30] VITALS: BP 140/68; PULSE 72; RESP 16; TEMP 36.9; O2SAT 98
[2019-05-31] MEDS: Glucerna Shake 120 ML LIQUID PO ×2 (07:36→16:50)
[2019-05-31] MEDS: Famotidine 20 MG Tablet PO ×2 (07:37→21:50)
[2019-05-31] MEDS: Enoxaparin 40 MG/0.4 ML Syringe SC (07:37)
[2019-05-31] MEDS: Aspirin 81 MG TAB.CHEW PO ×2 (07:37→16:51)
--- NOTE | 2019-05-31 08:31 | PCM.PROGNOTE ---
Patient Problems: Active and Suspected Problems Closed trimalleolar fracture of ankle (Acute) Subjective: Chief complaint: Follow-up after admission for subacute traumatic trimalleolar fracture of the right ankle, status post open reduction and internal fixation. Patient seen and examined. No acute events overnight. Right foot pain is manageable. No complaints. Blood pressure slightly elevated, other vital signs are stable. - Physical Exam General: Alert, Oriented x3, Cooperative, No apparent distress HEENT: Atraumatic, PERRLA, EOMI, Normocephalic Oral: Moist Mucosa, No Gingival or Mucosal Lesions/ Ulcerations Neck: Supple, No JVD, Negative Carotid Bruits, Trachea Midline, Thyroid Normal Size and Texture Lungs: Clear to auscultation, Normal air movement, No rhonchi, No wheeze, No rales Cardiovascular: Regular rate, Regular Rhythm, Normal S1, Normal S2, PMI Normal Abdomen: Bowel Sounds Present, Soft, Non Tender, Non-Distended, No Hepato-splenomegaly Extremities: No clubbing, No cyanosis, No edema Skin: No rashes, No breakdown Lymphatic: No Cervical, Supraclavicular, or Inguinal Adenopathy Neurological: Cranial nerves II-XII grossly intact, Neuro grossly intact Psych/Mental Status: Normal Affect, Appropriate, Alert and oriented to time, place, person, mood and affect Vital Signs Temp Pulse Resp BP Pulse Ox 98.4 F 72 16 140/68 H 98 05/31/19 07:30 05/31/19 07:30 05/31/19 07:30 05/31/19 07:30 05/31/19 07:30 Oxygen Delivery Method Room Air Weight: 262 lb 12.656 oz Body Mass Index (BMI) 43.7 Intake and Output for Last 24 Hours 05/29/19 05/30/19 05/31/19 23:59 23:59 23:59 Intake Total 30 / 230 3243 / 3843 1000 / 1000 Output Total 300 / 300 1000 / 1000 Balance -270 / -70 3243 / 3143 0 / 0 Laboratory Tests Past 24 Hrs 05/31/19 05/31/19 05:16 05:16 WBC 12.4 H RBC 4.29 Hgb 12.3 Hct 38.2 MCV 89.0 MCH 28.7 MCHC 32.2 RDW Std Deviation 44.0 H RDW Coeff of Mana 13.5 Plt Count 254 MPV 10.2 Immature Gran % (Auto) 0.600 Neut % (Auto) 71.8 H Lymph % (Auto) 18.4 L [place] % (Auto) 8.4 Eos % (Auto) 0.6 Baso % (Auto) 0.2 Absolute Neuts (auto) 8.9 H Absolute Lymphs (auto) 2.29 Absolute Nucleated RBC 0.00 Nucleated RBC % 0 Sodium 137 Potassium 4.1 Chloride 104 Carbon Dioxide 28.0 Anion Gap 5 BUN 9 Creatinine 0.78 Estim Creat Clear Calc 66.23 Est GFR (MDRD) Af Amer 97 Est GFR (MDRD) Non-Af 80 BUN/Creatinine Ratio 11.6 Glucose 165 H Calcium 9.1 POC Glucose 05/31/19 05/30/19 05/30/19 06:54 21:42 17:05 POC Glucose 178 H 156 H 136 H 05/30/19 12:51 POC Glucose 159 H Medical Necessity - Tobacco Use Smoking Status: Former smoker Tobacco Use: Non-smoker Assessment/Plan All Active Problems Closed trimalleolar fracture of ankle (Acute) This is a 59 years old female patient presented to the emergency room because of increasing right ankle pain after she was diagnosed with right ankle fracture couple of days ago due to mechanical fall, x-ray performed and revealed subacute trimalleolar fracture of the right ankle and she was admitted for treatment. #1 subacute traumatic trimalleolar fracture of the right ankle: Status post open reduction and internal fixation, postoperative day 2. She is on IV morphine and OxyIR PRN for pain. Pain is manageable. Vital signs are stable. Orthopedic surgery is managing. Repeat routine blood work reviewed, revealed mild leukocytosis which is likely reactive. Patient denied symptoms suggestive of infection. Awaiting insurance approval for placement to long term facility. #2 hyperglycemia/newly diagnosed type 2 diabetes mellitus: Hemoglobin A1c was 7%. She is on sliding scale. Sugar has been around 150 to 170 mg/dL. Plan to potassium treatment, plan to start metformin upon discharge. #3 GERD: Continue Pepcid. #4 DVT prophylaxis: Subcu Lovenox. This note was generated with [employer] dictation software. It may contain incorrect words, spelling, and punctuation that were not noted in checking the note before signing. Code Visit Inpatient E&M: 66151 Subs Hosp L2
[2019-05-31 11:20] VITALS: BP 136/60; PULSE 68; RESP 16; TEMP 37; O2SAT 98
[2019-05-31 11:46] LABS: Bedside Glucose 159 mg/dL (70-110)
[2019-05-31 14:44] VITALS: BP 139/68; PULSE 74; RESP 16; TEMP 37.1; O2SAT 95
[2019-05-31 16:16] LABS: Bedside Glucose 187 mg/dL (70-110)
[2019-05-31] MEDS: Senna/Docusate Sodium 1 Tablet 2 TABLET PO (16:52)
[2019-05-31 19:47] VITALS: BP 150/70; PULSE 85; RESP 16; TEMP 37; O2SAT 98
[2019-05-31 22:25] LABS: Bedside Glucose 189 mg/dL (70-110)
[2019-06-01 02:16] VITALS: BP 145/79; PULSE 73; RESP 16; TEMP 36.5; O2SAT 97
[2019-06-01] MEDS: Senna/Docusate Sodium 1 Tablet 2 TABLET PO (05:18)
[2019-06-01] MEDS: oxyCODONE 5 MG Tablet 10 MG PO ×2 (05:18→10:20)
[2019-06-01] MEDS: Insulin Lispro 100 UNIT/ML INSULN.PEN SC ×3 (06:33→16:34)
[2019-06-01 06:45] LABS: Bedside Glucose 170 mg/dL (70-110)
[2019-06-01 08:07] VITALS: BP 148/78; PULSE 67; PULSE 70; RESP 18; TEMP 37; O2SAT 96
[2019-06-01] MEDS: Aspirin 81 MG TAB.CHEW PO ×2 (08:15→16:36)
[2019-06-01] MEDS: Famotidine 20 MG Tablet PO (08:16)
[2019-06-01] MEDS: Enoxaparin 40 MG/0.4 ML Syringe SC (08:16)
[2019-06-01] MEDS: Glucerna Shake 120 ML LIQUID PO ×2 (08:17→16:36)
--- NOTE | 2019-06-01 09:06 | CASEMGMT ---
Addendum entered by Cait Lazo 06/01/19 14:36: MARGARITO spoke with Cristina at [facility] stating pre-cert is still pending. Addendum entered by Cait Lazo 06/01/19 09:59: MARGARITO spoke with Cristina at [facility] who anticipates she will receive pre-cert today. Original Note: Social Work Note MARGARITO faxed updated clinicals to [facility]. Plan: [facility] pending pre-cert Cait Lazo HEADING REPAIRER, SENSOR OPERATOR
--- NOTE | 2019-06-01 09:41 | PCM.TXEXTCAR ---
- Diet 05/30/19 16:24 Diet: Calorie Controlled Is pt able to select menu?: Yes How many daily calories?: 1800 calorie - Wound(s) Right ankle Wound Type: Surgical Incision - Suggestions for Active Care Change Position every (hours): 3 Hours to sit in a chair: 2 Times a day to sit in chair: 3 - Therapies Weight Bearing: Non weight bearing Physical Therapy: Eval and Treat Occupational Therapy: Eval and Treat - Allergies/Procedures Done in Hospital Allergies/Adverse Reactions: Allergies No Known Allergies Allergy (Verified 05/28/19 10:10) - Type of Care/Length of Stay Estimated LOS: Convalescent Care Less Than 30 days Type of Care Needed: Skilled Rehab Potential: Good Prognosis: Good - Additional Orders/Day of Discharge H&P will serve as current which was dated: 05/28/19 Day of Discharge: 06/01/19 - Dietary and Speech Recommendations Dietitian Recommendations/Changes: When medically able, rec JOSE to 1800 maureen/low fat diet. - Follow Up Care Primary Care Physician: Selena Castle, MONONITROTOLUENE OPERATOR-C [Primary Care Provider] - Please follow up with your Primary Care Physician in: 1 week. Please Follow Up With: Ronnell Rivers MD When: 2 weeks.
[2019-06-01 13:32] VITALS: BP 146/73; PULSE 71; RESP 18; TEMP 36.8; O2SAT 94
[2019-06-01 13:34] VITALS: PULSE 60
[2019-06-01 13:46] LABS: Bedside Glucose 188 mg/dL (70-110)
[2019-06-01] MEDS: oxyCODONE 5 MG Tablet PO (14:52)
--- NOTE | 2019-06-01 15:09 | PCM.PROGNOTE ---
Subjective: Chief complaint: Follow-up after admission for subacute traumatic trimalleolar fracture of the right ankle, status post open reduction and internal fixation. Also, found to have newly diagnosed type 2 diabetes mellitus. Patient seen and examined. No acute events overnight. Right foot pain is stable, under control. Her vital signs are stable. - Physical Exam General: Alert, Oriented x3, Cooperative, No apparent distress HEENT: Atraumatic, PERRLA, EOMI, Normocephalic Oral: Moist Mucosa, No Gingival or Mucosal Lesions/ Ulcerations Neck: Supple, No JVD, Negative Carotid Bruits, Trachea Midline Lungs: Clear to auscultation, Normal air movement, No rhonchi, No wheeze, No rales Cardiovascular: Regular rate, Regular Rhythm, Normal S1, Normal S2, No murmurs, PMI Normal Abdomen: Bowel Sounds Present, Soft, Non Tender, Non-Distended, No Hepato-splenomegaly, Obese Extremities: No clubbing, No cyanosis, No edema Skin: No rashes, No breakdown Lymphatic: No Cervical, Supraclavicular, or Inguinal Adenopathy Neurological: Cranial nerves II-XII grossly intact, Neuro grossly intact Psych/Mental Status: Normal Affect, Appropriate Vital Signs Temp Pulse Resp BP Pulse Ox 98.3 F 60 18 146/73 H 94 06/01/19 13:32 06/01/19 13:34 06/01/19 13:32 06/01/19 13:32 06/01/19 13:32 Oxygen Delivery Method Room Air Weight: 262 lb 12.656 oz Body Mass Index (BMI) 43.7 Intake and Output for Last 24 Hours 05/30/19 05/31/19 06/01/19 23:59 23:59 23:59 Intake Total 3243 / 3843 2120 / 2120 Output Total 1650 / 1650 Balance 3243 / 3143 470 / 470 POC Glucose 06/01/19 06/01/19 05/31/19 11:09 06:31 21:50 POC Glucose 188 H 170 H 189 H 05/31/19 16:10 POC Glucose 187 H Medical Necessity - Tobacco Use Smoking Status: Former smoker Tobacco Use: Non-smoker Assessment/Plan All Active Problems Closed trimalleolar fracture of ankle (Acute) This is a 59 years old female patient presented to the emergency room because of increasing right ankle pain after she was diagnosed with right ankle fracture couple of days ago due to mechanical fall, x-ray performed and revealed subacute trimalleolar fracture of the right ankle and she was admitted for treatment. #1 subacute traumatic trimalleolar fracture of the right ankle: Status post open reduction and internal fixation, postoperative day 3. She is on IV morphine and OxyIR PRN for pain. Pain is under control. Vital signs are stable. Orthopedic surgery is managing. Awaiting insurance approval for placement to alf facility. #2 hyperglycemia/newly diagnosed type 2 diabetes mellitus: Hemoglobin A1c was 7%. She is on sliding scale. Sugar has been around 150 to 170 mg/dL. Plan to start metformin upon discharge. #3 GERD: Continue Pepcid. #4 DVT prophylaxis: Subcu Lovenox. This note was generated with [employer] dictation software. It may contain incorrect words, spelling, and punctuation that were not noted in checking the note before signing. Code Visit Inpatient E&M: 85584 Subs Hosp L2
[2019-06-01 16:11] LABS: Bedside Glucose 193 mg/dL (70-110)
[2019-06-01 16:18] LABS: Bedside Glucose 193 mg/dL (70-110)
[2019-06-01 16:23] LABS: Bedside Glucose 193 mg/dL (70-110)
--- NOTE | 2019-06-01 16:30 | CASEMGMT ---
Social Work Note SW received call from Cristina at [facility] stating pre-cert has been obtained and pt is able to discharge to SNF today. Physician had already completed discharge paperwork from earlier in the day. SW faxed completed discharge paperwork to [facility] including transfer to extended care facility, signed medication list and any scripts. Original in SNF folder and copy on pt's chart. PAS/RR was completed Saturday, original in SNF folder and copy on pt's chart. SW in to update pt, pt's and RN present in room. SW updated pt on approval to SNF and asked about transportation. Pt states she will need transportation. SW explained that pt could probably be transported via wheelchair van but since it is so late in the day, no wheelchair vans will be available. Pt still states she will need transportation arranged. SW explained that transportation via cot can be arranged but pt might get a bill if insurance doesn't cover transportation. Pt states she is not too worried about a bill and is agreeable to transportation being arranged. MARGARITO placed a call to [facility] and arranged transportation via cot for 5:30pm. SW updated pt, pt's and RN on transportation time. MARGARITO placed a call to Cristina at [facility] and updated her on transportation time. Plan: Pt to discharge to [facility] today skilled with [facility] transporting via cot at 5:30pm HAYDEE Serrano
--- NOTE | 2019-06-01 17:46 | NURSING ---
report called to Doreen acosta nurse at the [facility].
--- NOTE | 2019-06-01 20:56 | DS.PCM_ITS ---
Discharge Date and Diagnosis Date of Admission: 05/28/19 Date of Discharge: 06/01/19 - Primary Discharge Diagnosis #1 subacute traumatic trimalleolar fracture of the right ankle, status post open reduction and internal fixation. #2 newly diagnosed type 2 diabetes mellitus. - Secondary Discharge Diagnosis Chronic Problems GERD (gastroesophageal reflux disease) (Chronic) Hospital Course and Treatment Imaging Results: Clinical Impression(s) from Imaging Studies Ankle X-Ray 05/28/19 10:30 IMPRESSION: Subacute trimalleolar fractures in the right ankle with diffuse soft tissue swelling. Orthopedic surgery consultation recommended Prominent calcaneal spurs Electronically Signed: Cedric Martínez MD at 11:54 EDT , Service support , Ankle X-Ray 05/30/19 08:00 IMPRESSION: Fluoroscopic guidance for bimalleolar fracture fixation. Electronically Signed: Nemesio Philip MD at 12:42 EDT , Service support , Dr. Rivers, orthopedic surgery. Operations: None, - - Open reduction and internal fixation of the right ankle trimalleolar fracture. Procedures: None Summary of Care Provided: Patient seen and examined on the day of discharge and appeared to be stable to be discharged to nursing home facility. Her right foot pain is manageable, under control. Her vital signs are stable. The patient is a 59 year old F presented to the emergency room because of increasing right ankle pain after she was diagnosed with right ankle fracture couple of days before admission due to mechanical fall and she was found to have subacute trimalleolar fracture of the right ankle. Orthopedic surgery consulted and patient underwent open reduction and internal fixation of the fracture. She was treated with IV morphine and OxyIR PRN for pain. Reportedly, her pain was under control. Patient was found to have hyperglycemia for which hemoglobin C was done and that was 7% and she was diagnosed with newly diagnosed type 2 diabetes mellitus. During this hospital stay, she was treated with Accu-Cheks and insulin scale. Blood sugar has been in the range of 160s to 180s during this hospital stay. Her vital signs been stable throughout admission. Her routine blood work was unremarkable. Patient discharged to nursing home facility in a stable medical condition, discharged on OxyIR PRN for pain, discharged on aspirin 81 mg p.o. twice daily for DVT prophylaxis, discharged on metformin 500 mg p.o. twice daily for newly diagnosed type 2 diabetes mellitus, plan is to follow-up with orthopedic surgery in 2 weeks, recommended follow-up with PCP in 1 week. - Physical Exam General: Alert, Oriented x3, Cooperative, No apparent distress HEENT: Atraumatic, PERRLA, EOMI, Normocephalic Oral: Moist Mucosa, No Gingival or Mucosal Lesions/ Ulcerations Neck: Supple, No JVD, Negative Carotid Bruits, Trachea Midline, Thyroid Normal Size and Texture Lungs: Clear to auscultation, Normal air movement, No rhonchi, No wheeze, No rales Cardiovascular: Regular rate, Regular Rhythm, Normal S1, Normal S2, PMI Normal Abdomen: Bowel Sounds Present, Soft, Non Tender, Non-Distended, No Hepato- splenomegaly, Obese Extremities: No clubbing, No cyanosis, No edema Skin: No rashes, No breakdown Lymphatic: No Cervical, Supraclavicular, or Inguinal Adenopathy Neurological: Cranial nerves II-XII grossly intact, Neuro grossly intact Psych/Mental Status: Normal Affect, Appropriate Vital Signs Temp Pulse Resp BP Pulse Ox 98.3 F 60 18 146/73 H 94 06/01/19 13:32 06/01/19 13:34 06/01/19 13:32 06/01/19 13:32 06/01/19 13:32 Oxygen Delivery Method Room Air Weight: 262 lb 12.656 oz Body Mass Index (BMI) 43.7 Intake and Output for Last 24 Hours 05/30/19 05/31/19 06/01/19 23:59 23:59 23:59 Intake Total 3243 / 3843 2120 / 2120 Output Total 1650 / 1650 Balance 3243 / 3143 470 / 470 POC Glucose 06/01/19 06/01/19 06/01/19 16:02 16:02 16:02 POC Glucose 193 H 193 H 193 H 06/01/19 06/01/19 05/31/19 11:09 06:31 21:50 POC Glucose 188 H 170 H 189 H Home Medications: Medications to take at Discharge Ranitidine [Zantac] 150 mg PO DAILY 05/28/19 Aspirin [Aspirin, Baby] 81 mg PO BIDCM #90 tab.chew 06/01/19 Metformin HCl 500 mg PO BID #90 tab 06/01/19 Oxycodone [Oxyir] 5 mg PO Q4H PRN PRN 5 Days #30 tab 06/01/19 Senna/Docusate Sodium [Senokot-S] 2 tab PO BID PRN PRN #30 tab 06/01/19 Following Prescrptions Were Given to Patient: Aspirin [Aspirin, Baby] 81 mg PO BIDCM #90 tab.chew Prescription Printed Metformin HCl 500 mg PO BID #90 tab Prescription Printed Oxycodone [Oxyir] 5 mg PO Q4H PRN PRN 5 Days #30 tab PRN Reason: Severe Pain (-08/13) Prescription Printed Senna/Docusate Sodium [Senokot-S] 2 tab PO BID PRN PRN #30 tab PRN Reason: Constipation Prescription Printed Primary Care Physician: Selena Castle, [facility] [Primary Care Provider] - Please follow up with your Primary Care Physician in: 1 week. Please Follow Up With: Ronnell Rivers MD When: 2 weeks. Disposition: Long-Term facility Minutes spent on discharge:: 33 Patient Condition:: Stable Medical Necessity - Tobacco Use Smoking Status: Former smoker Tobacco Use: Non-smoker Meaningful Use Info Meaningful Use Diagnoses (Choose all that apply): None applicable Code Visit Inpatient E&M: 58350 Disch Hosp
== END 2019-06-01 17:42 | disposition skilled nursing facility (03) ==
LOC: ED 12:55 → MS3 14:17
PROVIDERS: Specialist; Emergency Provider Emergency Medicine; Family Provider Nurse Practitioner Primary Care; PCP Nurse Practitioner Primary Care; Visit Provider Hospitalist
PROC: (CPT 27814; principal; 2019-05-29 15:40)
DX: S82.841A Displaced bimalleolar fracture of right lower leg, initial encounter for closed fracture (principal); W01.0XXA Fall on same level from slipping, tripping and stumbling without subsequent striking against object, initial encounter; Y93.01 Activity, walking, marching and hiking; Y92.89 Other specified places as the place of occurrence of the external cause; E66.9 Obesity, unspecified; E11.9 Type 2 diabetes mellitus without complications; Z87.891 Personal history of nicotine dependence; Z68.41 Body mass index [BMI] 40.0-44.9, adult; Z71.3 Dietary counseling and surveillance; Z79.899 Other long term (current) drug therapy; K21.9 Gastro-esophageal reflux disease without esophagitis
CPT/HCPCS: 27814; 29515; 64450; 36415; 73610; 76000; 80048; 82962; 83036; 85025; 85610; 85730; 93005; 96365; 96366; 96372; 96375; 97110; 97161; 97166; 97530; 97535; 97802; 97803; 99218; 99284; C1713; J7120; A4216; G0378